=== PATIENT | male | born 1940 | race Caucasian/White ===

== ENCOUNTER 2020-09-02 05:57 | Observation (INO) | payer MEDICARE, OTHER ==
[2020-09-01 12:24] LABS: BASOPHILS % (AUTO) 0.3 % (0-1); EOSINOPHILS % (AUTO) 0.4 % (0-6); HEMATOCRIT 45.5 % (42.0-52.0); HEMOGLOBIN 15.2 g/dl (14.0-17.9); LYMPHOCYTES # (AUTO) 2.1 X10'3 (1.1-4.8); LYMPHOCYTES % (AUTO) 25.5 % (21-51); MEAN CORPUSCULAR HEMOGLOBIN 32.2 PG (27.0-31.0); MEAN CORPUSCULAR HGB CONC 33.4 g/dL (33.0-36.5); MEAN CORPUSCULAR VOLUME 96.2 FL (78-98); MEAN PLATELET VOLUME 9.3 FL (7.4-10.4); MONOCYTES # (AUTO) 0.6 X10'3 (0-0.9); MONOCYTES % (AUTO) 7.7 % (2-12); NEUTROPHILS # (AUTO) 5.4 X10'3 (1.8-7.7); NEUTROPHILS % (AUTO) 66.1 % (42-75); PLATELET COUNT 166 X10'3 (140-440); RED BLOOD COUNT 4.73 X10'6 (4.70-6.10); RED CELL DISTRIBUTION WIDTH 14.7 % (11.5-14.5); WHITE BLOOD COUNT 8.2 X10'3 (4.5-11.0)
[2020-09-01 12:32] LABS: ALBUMIN 3.9 G/DL (3.4-5.0); ANION GAP 8 (8-16); BLOOD UREA NITROGEN 21 MG/DL (7-18); BUN/CREATININE RATIO 16.3 (5.4-32.0); CHLORIDE 102 MMOL/L (99-107); CREATININE 1.29 MG/DL (0.60-1.10); GLUCOSE 94 MG/DL (70-104); POTASSIUM 3.9 MMOL/L (3.5-5.1); SODIUM 139 MMOL/L (135-145); TOTAL CARBON DIOXIDE 28.6 MMOL/L (24-32); eGFR 54 ML/MIN
[2020-09-01 12:34] LABS: PARTIAL THROMBOPLASTIN TIME 26 SECONDS (22-32)
[2020-09-02] VITALS (17 sets, daily range): BP systolic 82–136; BP diastolic 47–126
[~2020-09-02] VITALS: Ht 182.9 cm; Wt 109.8 kg
[~2020-09-02 05:57] MED LIST: ASPI-611 PO; CLOP75TA15 PO; COU1T PO; GLIM2TAB PO; LEVO175T2 PO; LORA2TAB PO; METF-436 PO; METO-395 PO; NIAC1000 PO; SIMV-45 PO; TRIA1TAB3 PO; WARF-113 PO
[2020-09-02] MEDS ORDERED: LORazepam 0.5 MG tablet PO PRN (06:15)
[2020-09-02] MEDS ORDERED: normal saline 1,000 ML IV SCH (06:15)
[2020-09-02] MEDS ORDERED: LIDOcaine/PRILOcaine 5gm cream TP ONE (06:15)
[2020-09-02] MEDS ORDERED: diphenhydrAMINE 25mg capsule PO PRN (06:15)
[2020-09-02] MEDS ORDERED: FLO0.4C PO (06:29)
[2020-09-02] MEDS ORDERED: DAPA10TA PO (06:29)
[2020-09-02] MEDS ORDERED: ALLO100T PO (06:29)
[2020-09-02] MEDS ORDERED: APIX5TAB3 PO (06:29)
[2020-09-02] MEDS ORDERED: fentaNYL/PF 50MCG/1 ML 2ML syringe ONE (07:45)
[2020-09-02] MEDS ORDERED: verapamil 2.5 mg/ml inj IV ONE (07:45)
[2020-09-02] MEDS ORDERED: midazolam 2 mg/2 ml injection ONE (07:45)
[2020-09-02] MEDS ORDERED: LIDOcaine 1% (10mg/ml)w/preservative injection 20ml MDV ONE (07:45)
[2020-09-02] MEDS ORDERED: heparin 1,000unit/ml 10ml vial 10 ML ONE (07:45)
[2020-09-02] MEDS ORDERED: nitroGLYCERIN-Tridil 50MG/D5W 250 ML IV ONE (07:46)
[2020-09-02] MEDS ORDERED: iohexol 350MG/ML 100ml bottle IV ONE (07:46)
[2020-09-02] MEDS ORDERED: iohexol 350 MG/ML 50ML vial IV ONE (07:46)
--- NOTE | 2020-09-02 09:25 | NUR ---
Pt arrived back to unit with NS running at new ordered rate of 150ml/hr. Pt denies pain, denies sob. VS stable as charted. Vasc band in place, no s/s of bleeding or hematoma. Will continue to monitor.
[2020-09-02] MEDS ORDERED: normal saline 1000ml 1,000 ML IV SCH (10:00)
--- NOTE | 2020-09-02 12:40 | NUR ---
Pt ambulated floor with front wheeled walker. Upon returning to room and sitting in bed with feet dangling, pt states, "I feel dizzy". Pt was talking and then lost consciousness, falling forward. He regained consciousness, mumbled a few unaudited words and lost consciousness again as I repositioned him into bed. Pt lost control of bladder. Labored breathing for approximately 30 seconds. Code called and cancelled when pt responded to name and VS noted. VS 97/47, HR 32, Spo2 94. Respiratory therapy at bedside. Pt placed on 2L O2. Pt VS 121/70 HR 59 SpO2 99% 2L. Responding appropriately. Will continue to monitor. Addendum: 09/02/20 at 1357 by Abbie Moreno RN bolus 250ml NS given during response.
--- NOTE | 2020-09-02 12:50 | NUR ---
Called MD. Reported episode as noted. New order to bolus patient 1 L NS and to call in new prescription of Florinef 0.1mg 30, no refills. Reassess pt after hydration and DC if pt able to ambulate. Will continue to monitor.
--- NOTE | 2020-09-02 14:00 | NUR ---
Orthostatic vs charted.
--- NOTE | 2020-09-02 14:20 | NUR ---
Pt successfully ambulated floor, when sat back in bed pt states he is "dizzy" and it was imperative that he lay down. Pt VS HR 38, BP 76/28 SpO2 99% on 2L. Pt kept repeating he was "dizzy" and eyes rolled back a couple of times. Pt never lost consciousness. VS after being in bed for 5 min are HR 72, BP 129/74 Spo2 99 2L. Pt states he is "comfortable" now. Will continue to monitor.
[2020-09-02] MEDS ORDERED: fludrocortisone acetate 0.1mg tablet PO ONE (14:30)
--- NOTE | 2020-09-02 14:30 | NUR ---
Contacted . New orders given. Pt receiving 500ml NS as per . Medication being administered as ordered. Will continue to monitor. Addendum: 09/02/20 at 1517 by Abbie Moreno RN MD is coming to hospital to see patient. Will continue to monitor.
--- NOTE | 2020-09-02 15:10 | NUR ---
Problems reprioritized. Patient report given, questions answered & plan of care reviewed with Alta OLIVEROS and Jennifer OLIVEROS.
--- NOTE | 2020-09-02 18:00 | NUR ---
DR CEE IN TO SEE PT, D/C MEDS CHANGED D/C'D HYDROCHLORATHIAZIDE, NEW MED ORDERED AND FAXED TO [facility]. PT ASSITED TO GET OOB, SAT ON SIDE OF BED, C/O DIZZINESS. BP 94/[address] CEE NEW ORDERS PT ADMIT TO ACCE. MEDS AND LABS ORDERED PER VERBAL ORDERS. VS RETURN TO STABLE AFTER PT SUPINE 119/72 HEART RATE 70'S. PT HAD SCHEDULED CAROTID US SCHEDULED FOR TUESDAY. NOW ORDERED FOR TOMORROW
--- NOTE | 2020-09-02 18:20 | NUR ---
REPORT GIVEN TO MARC ON ACCE UNIT. MED REC REVIEWED AND FAXED TO PHARMACY. DIET AND CODE STATUS ENTERED.
--- NOTE | 2020-09-02 18:20 | NUR ---
Patient in room MED 311. I have received report from Alta OLIVEROS and had the opportunity to ask questions and assume patient care.
--- NOTE | 2020-09-02 18:30 | NUR ---
DENA RN at pt's bedside, all pt's belongings (pt's glasses, watch, 49 mask, shoes and clothes) transferred with pt to [id number], pt's notified.
[2020-09-02 19:51] LABS: BASOPHILS % (AUTO) 0.3 % (0-1); EOSINOPHILS % (AUTO) 0.3 % (0-6); HEMATOCRIT 40.4 % (42.0-52.0); HEMOGLOBIN 13.6 g/dl (14.0-17.9); LYMPHOCYTES # (AUTO) 1.8 X10'3 (1.1-4.8); LYMPHOCYTES % (AUTO) 19.3 % (21-51); MEAN CORPUSCULAR HEMOGLOBIN 32.7 PG (27.0-31.0); MEAN CORPUSCULAR HGB CONC 33.7 g/dL (33.0-36.5); MEAN PLATELET VOLUME 9.2 FL (7.4-10.4); MONOCYTES # (AUTO) 0.6 X10'3 (0-0.9); MONOCYTES % (AUTO) 6.7 % (2-12); NEUTROPHILS % (AUTO) 73.4 % (42-75); PLATELET COUNT 132 X10'3 (140-440); RED BLOOD COUNT 4.16 X10'6 (4.70-6.10); RED CELL DISTRIBUTION WIDTH 14.6 % (11.5-14.5); WHITE BLOOD COUNT 9.5 X10'3 (4.5-11.0)
[2020-09-02 20:00] LABS: ALBUMIN 3.4 G/DL (3.4-5.0); ANION GAP 9 (8-16); BLOOD UREA NITROGEN 19 MG/DL (7-18); BUN/CREATININE RATIO 18.4 (5.4-32.0); CALCIUM 8.2 MG/DL (8.5-10.1); CHLORIDE 103 MMOL/L (99-107); CREATININE 1.03 MG/DL (0.60-1.10); GLUCOSE 98 MG/DL (70-104); POTASSIUM 3.7 MMOL/L (3.5-5.1); SODIUM 137 MMOL/L (135-145); TOTAL CARBON DIOXIDE 25.1 MMOL/L (24-32); eGFR 70 ML/MIN
[2020-09-02] MEDS: normal saline 1000ml 1,000 ML IV SCH (20:51)
[2020-09-02] MEDS ORDERED: atorvastatin 20mg tablet PO SCH (21:00)
--- NOTE | 2020-09-03 00:30 | NUR ---
Patient says he uses his CPAP at night, but his was not going to bring it tonight. Low [address] of home cpap.
[2020-09-03 02:00] VITALS: BP 98/50
[2020-09-03] MEDS: normal saline 1000ml 1,000 ML IV SCH (05:49)
[2020-09-03 05:51] VITALS: BP_SYST 112; BP_SYST 115; BP_SYST 128; BP_DIAS 60; BP_DIAS 68; BP_DIAS 71
--- NOTE | 2020-09-03 06:36 | NUR ---
Problems reprioritized. Patient report given, questions answered & plan of care reviewed with Pat RN.
[2020-09-03 07:12] VITALS: BP_SYST 104; BP_SYST 121; BP_SYST 94; BP_DIAS 57; BP_DIAS 70; BP_DIAS 71
[2020-09-03 07:16] VITALS: BP 107/49
[2020-09-03] MEDS ORDERED: tamsulosin 0.4mg capsule PO SCH (08:00)
[2020-09-03] MEDS ORDERED: levoTHYROXINE 175mcg tablet PO SCH (08:00)
[2020-09-03] MEDS ORDERED: apixaban 5mg tablet PO SCH (08:00)
[2020-09-03] MEDS ORDERED: allopurinol 100mg tablet PO SCH (08:00)
[2020-09-03] MEDS ORDERED: metoprolol succinate 25mg (24-HOUR) SR. Tablet PO SCH (08:00)
[2020-09-03] MEDS ORDERED: metFORMIN 500mg tablet PO SCH (08:00)
[2020-09-03] MEDS ORDERED: glipizide 5mg tablet PO SCH (08:00)
[2020-09-03] MEDS ORDERED: fludrocortisone acetate 0.1mg tablet PO SCH (08:30)
[2020-09-03 11:34] VITALS: BP 128/62
[2020-09-03] MEDS ORDERED: FLO0.1T PO (12:49)
--- NOTE | 2020-09-04 14:55 | NUR ---
Case Management DC follow up: Pt readmit 09/04/20 r/t syncope [id number]
== END 2020-09-03 13:30 | disposition home or self-care (01) ==
LOC: SSTAY O 05:57 → MED 3N 17:46
PROVIDERS: ADMIT Internal Medicine Cardiovascular Disease; ATTEND Internal Medicine Cardiovascular Disease
DX: R94.39 Abnormal result of other cardiovascular function study (principal); I25.10 Atherosclerotic heart disease of native coronary artery without angina pectoris; R40.4 Transient alteration of awareness; I48.91 Unspecified atrial fibrillation; I10 Essential (primary) hypertension; E78.5 Hyperlipidemia, unspecified; E11.9 Type 2 diabetes mellitus without complications; E03.9 Hypothyroidism, unspecified; M10.9 Gout, unspecified; G47.30 Sleep apnea, unspecified; Z86.718 Personal history of other venous thrombosis and embolism; Z86.711 Personal history of pulmonary embolism; Z95.5 Presence of coronary angioplasty implant and graft; Z79.84 Long term (current) use of oral hypoglycemic drugs; Z79.01 Long term (current) use of anticoagulants; Z79.899 Other long term (current) drug therapy; Z88.2 Allergy status to sulfonamides
CPT/HCPCS: 36415; 80048; 82948; 85025; 85610; 85730; 93005; 93460; 93880; 96360; 96361; C1769; C1894; G0378; J1644; J2001; J2250; J3010; J7030; Q0163; Q9967; 99152; 99153; A4620; C1751; J3490

== ENCOUNTER 2020-09-04 11:06 | Outpatient (CLI) | payer MEDICARE, OTHER ==
[2020-09-04] VITALS (21 sets, daily range): BP systolic 111–141; BP diastolic 62–92
[~2020-09-04 11:06] MED LIST changes: +ALLO100T PO; +APIX5TAB3 PO; -ASPI-611 PO; -CLOP75TA15 PO; -COU1T PO; +DAPA10TA PO; +FLO0.1T PO; +FLO0.4C PO; -LORA2TAB PO; -NIAC1000 PO; -TRIA1TAB3 PO; -WARF-113 PO
== END 2020-09-04 23:59 | disposition home or self-care (01) ==
LOC: CARD DIAG 11:06
PROVIDERS: ATTEND Internal Medicine Cardiovascular Disease
DX: R55 Syncope and collapse (principal)
CPT/HCPCS: 93660